=== PATIENT | female | born 1960 | race Caucasian/White ===

== ENCOUNTER 2016-12-08 12:49 | Emergency (ER) | payer OTHER ==
[~2016-12-08] VITALS: Ht 165.1 cm; Wt 61.2 kg
[2016-12-08] MEDS ORDERED: TOPROL XL25 M1 PO (14:10)
[2016-12-08 14:22] LABS: ABSOLUTE BASOPHIL COUNT 0 /CUMM (0.0-0.2); ABSOLUTE EOSINOPHIL COUNT 0 /CUMM (0.0-0.7); ABSOLUTE GRANULOCYTE CT 3.3 /CUMM (1.4-6.5); ABSOLUTE LYMPH COUNT 0.9 /CUMM (1.2-3.4); ABSOLUTE MONOCYTE COUNT 0.3 /CUMM (0.10-0.60); BASOPHIL % 0.3 % (0.0-2.0); EOSINOPHIL % 0.2 % (0-5); GRANULOCYTE % 73.4 % (42.2-75.2); HEMATOCRIT 40.3 % (37-47); MEAN CORPUSCULAR HGB 37.3 PG (27.0-31.0); MEAN CORPUSCULAR HGB CONC 34.8 G/DL (33.0-37.0); MEAN CORPUSCULAR VOLUME 107.1 FL (81.0-99.0); MEAN PLATELET VOLUME 6.9 FL (7.4-10.4); PLATELET COUNT 243 /CUMM (130-400); RBC DISTRIBUTION WIDTH 13.9 % (11.5-14.5); RED BLOOD CELL CT 3.76 /CUMM (4.20-5.40); WHITE BLOOD CELL COUNT 4.6 /CUMM (4.8-10.8)
--- NOTE | 2016-12-08 14:47 | ED PSYCHIATRIC COMPLAINT ---
See Addendum History of Present Illness General Chief Complaint: ETOH/Drug Related Complaint Stated Complaint: ETOH DETOX; Source: patient Exam Limitations: no limitations Vital Signs & Intake/Output Vital Signs & Intake/Output Vital Signs Date Time Temp Pulse Resp B/P B/P Pulse O2 O2 Flow FiO2 Mean Ox Delivery Rate 12/08 1830 84 182/96 12/08 1810 98.1 84 16 182/96 99 Room Air 12/08 1701 84 200/108 12/08 1645 98.0 84 18 200/108 12/08 1645 98.0 84 16 200/108 98 Room Air 12/08 1444 84 181/96 12/08 1402 84 16 181/96 98 Room Air 12/08 1400 98.0 84 18 181/96 12/08 1359 98 Room Air 12/08 1310 98.4 84 20 184/118 99 Room Air Allergies Uncoded Allergies: PCN (Intermediate, HIVES 12/08/16) Reconcile Medications Metoprolol Succ XL (Toprol XL) 25 MG TAB 1 TAB PO DAILY HTN (Reported) Paroxetine HCl (Paxil) 10 MG TABLET (Unknown Dose) PO DAILY DEPRESSION ( Reported) Triage Note: REQUESITNG DETOX OFF ALCOHOL, DRINKING WINE DAILY (4 GLASSES CHRADONAY) X 5 YEARS. DENIES WITHDRAWL SEIZURES. DENIES SI OR HI. Triage Nurses Notes Reviewed? yes Onset: Abrupt Duration: day(s):, constant Timing: recent history HPI: 56-year-old female comes into the emergency room sent in by [facility] which [facility] a detox facility that is self paid for possible inpatient detox of alcohol here at [facility]. She has been drinking wine since she was 20 years old and drinking heavily for the past 5 years. She denies any suicidal or homicidal ideation. Denies any drug use. Patient's last drink was late last night. She went to [facility] watching her alcohol level was still high. Denies any seizure withdrawal. She reports that she gets some shaking with her hands when she stops drinking. History of hypertension. Discontinued her metoprolol about a month ago. Patient was on 25 mg. She denies any other associated symptoms at this time. (SWATI TELLEZ) Past History Travel History Traveled to [place] past 21 day No Medical History Any Pertinent Medical History? see below for history Cardiovascular: hypertension Psychiatric: etoh Surgical History Surgical History: non-contributory Psychosocial History What is your primary language Japanese Tobacco Use: Never used ETOH Use: heavy use Illicit Drug Use: denies illicit drug use Family History Hx Contributory? No (SWATI TELLEZ) Review of Systems Review of Systems Constitutional: Reports: no symptoms. EENTM: Reports: no symptoms. Respiratory: Reports: no symptoms. Cardiovascular: Reports: no symptoms. GI: Reports: no symptoms. Genitourinary: Reports: no symptoms. Musculoskeletal: Reports: no symptoms. Skin: Reports: no symptoms. Neurological/Psychological: Reports: see HPI. Hematologic/Endocrine: Reports: no symptoms. Immunologic/Allergic: Reports: no symptoms. All Other Systems: Reviewed and Negative (SWATI TELLEZ) Physical Exam Physical Exam General Appearance: well developed/nourished, mild distress Head: atraumatic Eyes: Bilateral: normal appearance, EOMI. Ears, Nose, Throat: normal ENT inspection, hearing grossly normal Neck: normal inspection Respiratory: normal breath sounds, no respiratory distress Cardiovascular: regular rate/rhythm Extremities: normal range of motion Neurological/Psychiatric: awake, alert, calm Appearance/Memory/Insight: appropriate appearance, appropriate insight Behavoir/Eye Contact/Speech: cooperative Thoughts/Hallucinations: normal thought pattern Skin: intact, normal color, warm/dry SAD PERSONS Done? patient not suicidal (SWATI TELLEZ) Progress Differential Diagnosis: dementia, drug intoxication, drug overdose, drug withdrawal, electrolyte abnormality, encephalitis, hypoglycemia, hypothyroidism, IC hem/mass/tumor, meningitis Plan of Care: Orders Procedure Date/time Status Regular Diet 12/09 B Active CIWA 12/08 1414 Active ETHANOL 12/08 1401 Complete COMPREHENSIVE METABOLIC PANEL 12/08 1401 Complete CBC WITHOUT DIFFERENTIAL 12/08 1401 Complete URINE DRUGS OF ABUSE 12/08 1351 Complete URINALYSIS 12/08 1351 Complete Laboratory Tests 12/08/16 1411: Anion Gap 15, Estimated GFR > 60, BUN/Creatinine Ratio 18.6, Glucose 97, Calcium 9.0, Total Bilirubin 0.4, AST 78 H, ALT 80 H, Alkaline Phosphatase 62, Total Protein 8.0, Albumin 4.9, Globulin 3.1, Albumin/Globulin Ratio 1.6, CBC w Diff NO MAN DIFF REQ, RBC 3.76 L, MCV 107.1 H, MCH 37.3 H, RDW 13.9, MPV 6.9 L, Gran % 73.4, Lymphocytes % 18.8 L, Monocytes % 7.3, Eosinophils % 0.2, Basophils % 0.3, Absolute Granulocytes 3.3, Absolute Lymphocytes 0.9 L, Absolute Monocytes 0.3, Absolute Eosinophils 0, Absolute Basophils 0, PUBS MCHC 34.8, Serum Alcohol 93.0 12/08/16 1354: Urine Opiates Screen < 100.00, Methadone Screen < 40, Barbiturate Screen < 60, Ur Phencyclidine Scrn < 6.00, Amphetamines Screen < 100, U Benzodiazepines Scrn < 85, Urine Cocaine Screen < 50, Urine Cannabis Screen < 5.00, Urine Color YEL, Urine Clarity CLEAR, Urine pH 6.0, Ur Specific [place] 1.025, Urine Protein NEG, Urine Ketones TRACE H, Urine Nitrite NEG, Urine Bilirubin NEG, Urine Urobilinogen 1.0, Ur Leukocyte Esterase TRACE H, Ur Microscopic SEDIMENT EXAMINED, Urine RBC RARE, Urine WBC 3-5 H, Ur Epithelial Cells FEW, Urine Mucus MOD H, Urine Hemoglobin TRACE-INTACT, Urine Glucose NEG Departure Departure Disposition: HOME OR SELF CARE Condition: Stable Clinical Impression Primary Impression: ETOH abuse Referrals: NEERU LEVY MD (PCP/Family) Additional Instructions: Please go over all results of today's visit with your primary care doctor. Contact your primary care doctor to let them know you were here in the emergency room. There may be nonspecific findings which may not be related to your visit today here in the emergency room but may require further evaluation and chronic monitoring by your primary care doctor. If you had a laceration today the chance of foreign body always remains. You should follow-up with your primary care doctor for recheck in 3-5 days for a wound check. If you had an x-ray done there is a chance that a fracture could have been missed on initial read and you should follow-up with your primary care doctor for repeat x-rays if symptoms persist. If your blood pressure was elevated here in the emergency room please have rechecked by her primary care doctor within the next 48 hours by your primary care doctor. If you were prescribed a narcotic here in the emergency room or any type of controlled substances you're not allowed to drive while taking this medication or operate any type of heavy machinery. Narcotics can make you feel lightheaded dizziness nausea and can cause constipation. You may need to slat pickler a stool softener. Thank you for choosing [facility] emergency room. Please return to the emergency room immediately if you have any other concerns worsening of symptoms. Departure Forms: Customer Survey General Discharge Information Comments 12/08/2016 7:25:01 PM Patient does not meet criteria for inpatient detox or outpatient detox by medication. Patient is going to self-admitted herself too high watch. Patient is going to get a transfer from this facility to bring her for inpatient management. Patient is a self-pay. Patient reevaluated multiple times. Patient seen by Dr. Kelly. Patient will require blood pressure control at this facility which Dr. Kelly will handle. (SWATI TELLEZ) PA/DRONE SOFTWARE DEVELOPMENT ENGINEER Co-Sign Statement Statement: ED Attending supervision documentation- [X] I saw and evaluated the patient. I have also reviewed all the pertinent lab results and diagnostic results. I agree with the findings and the plan of care as documented in the PA's/DRONE SOFTWARE DEVELOPMENT ENGINEER's documentation. [] I have reviewed the ED Record and agree with the PA's/DRONE SOFTWARE DEVELOPMENT ENGINEER's documentation. [] Additions or exceptions (if any) to the PAs/DRONE SOFTWARE DEVELOPMENT ENGINEER's note and plan are summarized below: [] (RESHMA KELLY DO)
[2016-12-08] MEDS ORDERED: PAXIL10 M1 PO (16:46)
--- NOTE | 2016-12-09 07:25 | RADIOLOGY REPORT ---
EXAMINATION: XR FINGER, RIGHT CLINICAL INFORMATION: Jammed right ring finger pain. COMPARISON: None TECHNIQUE: Three views of the right fourth finger including AP view of the hand. FINDINGS: Fourth finger: The bones joints and soft tissues are normal without fracture. There is arthrosis of the first carpometacarpal joint likely at least moderate IMPRESSION: X-ray the fourth finger within normal limits. Incidental note is made of arthrosis of the first carpometacarpal joint
== END 2016-12-09 09:27 ==
LOC: ERH 12:49
PROVIDERS: Physician Assistant Medical
DX: F10.10 Alcohol abuse, uncomplicated (principal)
CPT/HCPCS: 73140-RT; 80307; 81001; G0480